=== PATIENT | male | born 1955 | race Caucasian/White ===

== ENCOUNTER 2019-09-13 17:32 | Emergency (ER) | payer BC, SELFPAY ==
[2019-09-13 17:33] VITALS: BP 208/112; PULSE 81; RESP 14; TEMP 36.9; O2SAT 99; BMI 30.4
[2019-09-13 17:49] VITALS: BP 222/113
--- NOTE | 2019-09-13 17:59 | EKG12_ITS ---
Test Reason : HYPERTENSION Blood Pressure : / mmHG Vent. Rate : 073 BPM Atrial Rate : 073 BPM P-R Int : 186 ms QRS Dur : 084 ms QT Int : 400 ms P-R-T Axes : 054 -23 021 degrees QTc Int : 440 ms Normal sinus rhythm Minimal voltage criteria for LVH, may be normal variant Borderline ECG Confirmed by MINOR EDOUARD, BERTA ([id number]), video tape editor XIN WILLS ([id number]) on 09/15/2019 9:55:57 AM Referred By: OBDULIO Confirmed By:BERTA GAXIOLA MD
--- NOTE | 2019-09-13 17:59 | ED.VIS.GEN ---
History of Present Illness Chief Complaint: Hypertension Informant: Patient Onset: Today Current Severity: Mild Maximum Severity: Mild Narrative: Patient presents with concerns for elevated blood pressure. Approximate 1 month ago he was started on losartan 50 mg daily. His systolic blood pressure had been running in the 170s and after starting medications have been in the 140s. Patient states he was running around the house doing work today. He did not eat. He did drink 2 beers and then felt fuzzy in his head. He was not sure if it was because of the alcohol or because he had not eaten. He checked his blood pressure and noted his systolic pressure to be 195. This was rechecked a short time later and systolic pressure was found to be 210. Patient denies headache. He denies chest pain or palpitations. He did take his blood pressure medication about 3 hours ago. Past Medical History - Allergies and Home Meds Allergies/Adverse Reactions: Allergies No Known Allergies Allergy (Verified 09/13/19 17:33) Primary Care Physician: Care Physician,No Primary [NON-STAFF] - Prior records reviewed: Yes Past Medical History: - - Reviewed Lives: Spouse/ Significant Other Smoking Status: Current every day smoker Review of Systems General: Denies: Chills, Fever Eyes: Denies: Visual changes - bilaterally ENT: Denies: Bilateral ear pain Cardiovascular: Denies: Chest pain Respiratory: Denies: Dyspnea, Cough Gastrointestinal: Denies: Abdominal pain, Nausea, Vomiting, Diarrhea Genitourinary: Denies: Dysuria Musculoskeletal: Denies: Extremity Pain Skin: Denies: Rash Neurological: Denies: Headache, Weakness, Parasthesia, Numbness Allergy: Denies: Uticaria Physical Exam Vital Signs/Narrative: Vital Signs Temp Pulse Resp BP Pulse Ox 09/13/19 17:49 222/113 H 09/13/19 17:33 98.4 F 81 14 208/112 H 99 Inital Vital Signs reviewed: Yes General: Well nourished, Well developed Head: Normocephalic ENT: Moist mucous membranes Neck: Supple Cardiovascular: Regular rate, Regular rhythm Respiratory: No distress, CTA bilaterally Abdomen: Soft, Nontender, Normal bowel sounds Extremities: Nontender, No edema Skin: Normal color Neurological: Alert, Oriented x3, Normal Strength, Normal Sensation Psychological: Normal affect Diagnostic/Tx/Re-eval Laboratory Results 09/13/19 09/13/19 09/13/19 18:05 18:05 18:20 WBC 8.0 RBC 4.34 L Hgb 13.7 Hct 40.4 MCV 93.1 MCH 31.6 MCHC 33.9 RDW Std Deviation 41.9 RDW Coeff of [place] 12.1 Plt Count 173 MPV 9.9 Immature Gran % (Auto) 0.500 Neut % (Auto) 55.2 Lymph % (Auto) 33.3 [place] % (Auto) 9.0 Eos % (Auto) 1.5 Baso % (Auto) 0.5 Absolute Neuts (auto) 4.4 Absolute Lymphs (auto) 2.68 Nucleated RBC % 0 Sodium 140 Potassium 4.0 Chloride 104 Carbon Dioxide 28.0 Anion Gap 8 BUN 11 Creatinine 1.00 Estim Creat Clear Calc 72.20 Est GFR (MDRD) Af Amer 97 Est GFR (MDRD) Non-Af 80 BUN/Creatinine Ratio 11.0 Glucose 97 Calcium 8.7 Urine Color Yellow Urine Clarity Clear Urine pH 6.0 Ur Specific [place] 1.015 Urine Protein 15 H Urine Glucose (UA) Normal Urine Ketones Negative Urine Occult Blood Negative Urine Nitrite Negative Urine Bilirubin Negative Urine Urobilinogen Normal Ur Leukocyte Esterase 100 H Urine RBC 0 SEEN Urine WBC 0-5 SEEN Ur Squamous Epith Cells 0-5 SEEN Urine Bacteria RARE Urine Mucus 0 SEEN - EKG Initial EKG Interpretation: Sinus Rhythm - Sinus at 73 with no acute ischemia. - Medical Decision Making Patient was given 10 mg of IV labetalol. On repeat evaluation systolic blood pressure remained 199. He was ordered a second dose, however when the nurse went in to give if systolic pressure was down to 166. Patient has no complaints at this time. He will be discharged and was encouraged to keep a journal of his blood pressures this weekend and call his PCP on Sunday. With further questioning he does state that he drinks 2 pots of coffee today which is abnormal for him. He will monitor his caffeine intake. ED Disposition - Plan for ED Patient: Disposition: Home or Assisted Living Diagnosis: Hypertension Instructions: HYPERTENSION, Established Referrals: Roxy Abraham MD [Primary Care Provider] - 1 Week
[2019-09-13 18:13] LABS: Absolute Lymphocyte Count 2.68 X10^3/uL (0.83-4.51); Absolute Neutrophil Count 4.4 X10^3/uL (2.0-7.7); Basophil# 0.04 X10^3/uL; Basophil% 0.5 % (0-1); Eosinophil# 0.12 X10^3/uL; Eosinophils% 1.5 % (0-5); Hematocrit 40.4 % (40-54); Hemoglobin 13.7 g/dL (13.0-16.5); Lymphocyte # 2.68 X10^3/ul (4.0); Lymphocyte % 33.3 % (19-41); Mean Corp Hgb Conc 33.9 g/dL (32-36); Mean Corpuscular Hgb 31.6 pg (27.0-32.0); Mean Corpuscular Volume 93.1 fL (80-94); Mean Platelet Vol. 9.9 fl (6.2-12.0); Monocyte# 0.72 X10^3/uL; NRBC Flagged by Analyzer 0 % (0-5); Neutrophil # 4.44 X10^3/uL (2.7-7.7); Neutrophil % 55.2 % (47-70); Platelet Count 173 K/mm3 (150-450); RBC Distribution Width CV 12.1 % (11.6-14.6); RBC Distribution Width SD 41.9 fl (35.1-43.9); Red Blood Count 4.34 M/mm3 (4.6-6.2)
[2019-09-13 18:24] LABS: Mucous, Urine 0 SEEN /hpf (<or=2+); Red Blood Cells-Urine 0 SEEN /hpf (0-5)
[2019-09-13 18:25] LABS: Color, Urine Yellow (Yellow); Glucose, Dipstick Normal (Normal); Ketone-Dipstick Negative (Negative); Leukocyte Esterase-Dipstick 100 /ul (Negative); Nitrite-Dipstick Negative (Negative); Occult Blood-Urine Negative /ul (Negative); Protein-Dipstick 15 mg/dl (Negative); Specific Gravity, Urine 1.015 (1.002-1.030); Urine Bilirubin Dipstick Negative (Negative); Urine Clarity Clear (Clear); Urine Urobilinogen Normal (Normal)
[2019-09-13 18:26] LABS: Anion Gap 8 (5-15); BUN 11 mg/dL (7-18); Calcium,Total 8.7 mg/dL (8.5-10.1); Chloride 104 mmol/L (98-107); EST Glomerular Filtration Rate 80 mL/min (>60); Est Glom Filt Rate - Afr Amer 97 mL/min (>60); Glucose 97 mg/dL (74-106); Sodium Level 140 mmol/L (136-145)
[2019-09-13 18:32] LABS: Bacteria RARE /hpf (None Seen); Squamous Epithelial Cells - UA 0-5 SEEN /hpf (0-5); White Blood Cells 0-5 SEEN /hpf (0-5)
[2019-09-13 18:37] VITALS: BP 199/90; PULSE 66; RESP 16; O2SAT 99
[2019-09-13 19:33] VITALS: BP 166/82; PULSE 69; RESP 15; O2SAT 98
--- NOTE | 2019-09-13 19:33 | ED.RN ---
dr saucedo aware of bp 166/82 and ordered not to give trandate.
[2019-09-13 19:47] VITALS: BP 166/82; PULSE 68; RESP 16; O2SAT 98
== END 2019-09-13 19:48 | disposition home or self-care (01) ==
PROVIDERS: Emergency Provider Emergency Medicine; Family Provider Internal Medicine; PCP Internal Medicine
DX: I10 Essential (primary) hypertension (principal); F17.200 Nicotine dependence, unspecified, uncomplicated
CPT/HCPCS: 80048; 81001; 85025; 93005; 96374; 99284; A4216